=== PATIENT | female | born 1980 | race Caucasian/White ===

== ENCOUNTER → 2020-11-11 | Outpatient (CLI) | payer MEDICARE, OTHER | LOC: KOH-I 14:19 | DX: S93.04XA Dislocation of right ankle joint, initial encounter (principal); S82.891A Other fracture of right lower leg, initial encounter for closed fracture | CPT/HCPCS: 73721 ==

== ENCOUNTER → 2020-11-30 | Outpatient (CLI) | payer MEDICARE, OTHER | LOC: KOH-I 11:38 | DX: S82.51XA Displaced fracture of medial malleolus of right tibia, initial encounter for closed fracture (principal) | CPT/HCPCS: 73610 ==

== ENCOUNTER → 2021-01-21 | Outpatient (CLI) | payer MEDICARE, OTHER | LOC: KOH-I 10:16 | DX: S82.891A Other fracture of right lower leg, initial encounter for closed fracture (principal) | CPT/HCPCS: 73610 ==

== ENCOUNTER → 2021-03-22 | Outpatient (CLI) | payer MEDICARE, OTHER | LOC: KOH-I 14:54 | DX: S82.891A Other fracture of right lower leg, initial encounter for closed fracture (principal); M25.871 Other specified joint disorders, right ankle and foot | CPT/HCPCS: 73610 ==

== ENCOUNTER → 2021-03-30 | Outpatient (CLI) | payer MEDICARE, OTHER | LOC: KOH-I 09:05 | DX: S93.431A Sprain of tibiofibular ligament of right ankle, initial encounter (principal); S86.311A Strain of muscle(s) and tendon(s) of peroneal muscle group at lower leg level, right leg, initial encounter | CPT/HCPCS: 73718 ==

== ENCOUNTER → 2021-05-11 | Outpatient (CLI) | payer MEDICARE, OTHER | LOC: KOH-I 15:27 | DX: M25.571 Pain in right ankle and joints of right foot (principal) | CPT/HCPCS: 73610 ==

== ENCOUNTER 2022-04-04 18:42 | Emergency (ER) | payer MEDICARE, OTHER ==
[~2022-04-04] VITALS: Ht 165.1 cm; Wt 81.6 kg
[2022-04-04 20:19] LABS: HEMOGLOBIN 13.8 gm/dl (12.3-15.3); RED BLOOD COUNT 4.62 M/UL (4.00-5.10); WHITE BLOOD COUNT 16.1 K/UL (4.5-11.0)
[2022-04-04 20:48] LABS: BUN/CREATININE RATIO 17 (0-10)
[2022-04-05] MEDS ORDERED: METHADONE PO (10:44)
[2022-04-05] MEDS ORDERED: CYCLOBENZAPRINE10 MG PO (10:44)
[2022-04-05] MEDS ORDERED: NAPROXEN500 MG PO (10:45)
[2022-04-05] MEDS ORDERED: BUPROPION XL150 MG PO (10:45)
[2022-04-05] MEDS ORDERED: PRISTIQ ER100 MG PO (10:45)
[2022-04-05] MEDS ORDERED: LAMICTAL25 MG PO (10:45)
== END 2022-04-05 16:04 | disposition short-term general hospital (02) ==
LOC: ER1 18:42
PROVIDERS: Physician Assistant
DX: U07.1 COVID-19 (principal); M46.47 Discitis, unspecified, lumbosacral region; R10.9 Unspecified abdominal pain; R40.2410 Glasgow coma scale score 13-15, unspecified time; F17.210 Nicotine dependence, cigarettes, uncomplicated
CPT/HCPCS: 36415; 71045; 72128; 72158; 80053; 81001; 82150; 82550; 82553; 83605; 83690; 84484; 85025; 85652; 96365; 96366; 96368; 96372; 96375; 96376; 99285; A9577; J1170; J1885; J2060; J2270; J2360; J2405; J2543; J3370; J7070; Q9967; U0002

== ENCOUNTER → 2022-05-04 | Outpatient (CLI) | payer MEDICARE, OTHER ==
[~2022-05-04] MED LIST: BUPROPION XL150 MG PO; CYCLOBENZAPRINE10 MG PO; LAMICTAL25 MG PO; METHADONE PO; NAPROXEN500 MG PO; PRISTIQ ER100 MG PO
== END ==
LOC: MRI 11:00
DX: M51.37 Other intervertebral disc degeneration, lumbosacral region (principal); M51.26 Other intervertebral disc displacement, lumbar region
CPT/HCPCS: 72158; A9577